=== PATIENT | female | born 1955 | race Caucasian/White ===

== ENCOUNTER 2025-08-22 10:52 | Emergency (ER) | payer MEDICARE, SELFPAY ==
[2025-08-22] VITALS (7 sets, daily range): BP systolic 117–130; BP diastolic 65–100; PULSE 64–80; RESP 12–22; TEMP 36.4–36.7; O2SAT 89–95; BMI 39.4
--- NOTE | ~2025-08-22 | CT_ITS ---
EXAMINATION: CT CHEST ANGIOGRAPHY WITH IV CONTRAST INDICATION: oxygen dependency new COMPARISON: There are no prior studies available for comparison. TECHNIQUE: Helical CT scan of the chest was performed following administration of intravenous contrast (65 mL Omnipaque 350). The contrast bolus was timed to optimally opacify the pulmonary arteries. Thin sections were obtained through the pulmonary arteries. Coronal and sagittal reformatted images were generated. 3D/MIP reconstructed images are also obtained and reviewed. This CT exam was performed with one or more of the following dose reduction techniques: automated exposure control, adjustment of the mA and/or kV according to patient size, use of iterative reconstruction technique. DLP: mGy-cm CHEST: THYROID: The thyroid gland is unremarkable. PULMONARY ARTERIES: No intraluminal filling defects are identified within the pulmonary arteries to suggest pulmonary emboli. Pulmonary arteries normal in caliber, main pulmonary artery measuring 2.6 cm. No evidence of right heart strain. No reflux of contrast into the liver. LUNGS: Elevated right hemidiaphragm. Mild 3 mm peripheral or subpleural right upper lobe nodule axial image 40 series 7. 4 mm peripheral or subpleural right upper lobe nodule adjacent to the minor fissure axial image 52 series 7. 5 mm peripheral right middle lobe nodule axial image 67 series 7. Peripheral scarring or subsegmental atelectasis in the inferior segment of the lingula. Very mild centrilobular emphysema. Mild dependent atelectasis. Central airways are clear. MEDIASTINUM: Small mediastinal lymph nodes. Small hiatal hernia. Small cardiophrenic angle anterior diaphragmatic lymph nodes. MICHAEL: No enlarged hilar lymph nodes. CARDIOVASCULATURE: The heart is normal in size. There is no pericardial effusion. The thoracic aorta is normal in caliber. DEGREE OF CORONARY CALCIFICATION: mild PLEURA: There is no pleural effusion. No pneumothorax. MAIN AIRWAYS: The mainstem bronchi and proximal branches are patent. AXILLA: There is no axillary lymphadenopathy. No chest wall mass. UPPER ABDOMEN: The visualized portions of the liver, spleen, and adrenals are unremarkable. BONES AND SOFT TISSUES: Unremarkable. CT/CT angio chest PE protocol IMPRESSION: No evidence of pulmonary emboli. Elevated right hemidiaphragm. Mild emphysema. Small pulmonary nodules largest measuring 5 mm. Small esophageal hernia. Fleischner Criteria for pulmonary nodule follow-up SOLID NODULES: Low risk patient: <6mm: no follow-up 6-8mm: 6 month follow-up CT >8mm: PET/Biopsy/ 3 month follow-up CT High risk patient: <6mm: 12 month follow-up CT 6-8mm: 6 month follow-up CT >8mm: PET/Biopsy/ 3 month follow-up CT SUB-SOLID/GROUNDGLASS NODULES: All patients: > or = 6mm: 6 month follow-up CT *Please note that in patients in the following categories, the Fleischner criteria do not apply: Immunocompromised, lung cancer screening population, age below 35, and patients with known malignancy Electronically signed by: Parul Nelson MD 08/22/2025 03:10 PM MIRELLA
--- NOTE | 2025-08-22 11:14 | ECG_ITS ---
Test Reason : sob Blood Pressure : */* mmHG Vent. Rate : 69 BPM Atrial Rate : 69 BPM P-R Int : 194 ms QRS Dur : 76 ms QT Int : 388 ms P-R-T Axes : 37 6 54 degrees QTcB Int : 415 ms Normal sinus rhythm Normal ECG No previous ECGs available Referred By: Generic ED Physician Electronically Signed By: Deshaun Dawkins
[2025-08-22 11:49] LABS: MANUAL DIFF FLAG NO
--- NOTE | 2025-08-22 11:51 | MHC.EDTECH ---
Addendum entered by Mariela Storey 08/22/25 12:02: EKG completed by this tech at this time. Original Note: EKG delayed due to the machine being used for other Pts.
[2025-08-22 11:55] LABS: INTERNATIONAL NORM RATIO 1.0 (0.9-1.1); Prothrombin Time 12.5 SEC (11.2-13.5)
[2025-08-22 11:56] LABS: Hematocrit 46.9 % (37.0-47.0); Hemoglobin 15.7 g/dl (12.0-16.0); Imm Gran Abs Auto 0.02 X10*3/uL (0.00-0.03); Imm Gran Pct Auto 0.3 % (0.0-0.4); Lymphocytes Absolute Auto 2.0 X10*3/uL (1.2-4.9); Mean Corpuscular HGB Conc 33.5 g/dl (31.0-35.0); Mean Corpuscular Hemoglobin 30.8 pg (27.0-33.0); Mean Corpuscular Volume 92.1 fL (80.0-98.0); NRBC Abs Auto 0.000 X10*3/uL (0.0-0.012); NRBC Pct Auto 0.0 /100WBC (0.0-0.2); Platelet Count 241 X10*3/uL (160-400); Red Blood Count 5.09 X10*6/uL (4.20-5.50); White Blood Count 7.4 X10*3/uL (4.8-10.8)
[2025-08-22 12:08] LABS: Alanine Aminotransferase 28 U/L (0-31); Albumin Level 4.2 g/dL (3.5-5.0); Alkaline Phosphatase 120 U/L (39-117); Anion Gap 11 (12-20); Aspartate Amino Transferase 26 U/L (5-31); Blood Urea Nitrogen 14 mg/dL (9-16); Calcium 9.3 mg/dL (8.4-10.2); Carbon Dioxide 24 mmol/L (22-29); Chloride 108 mmol/L (96-108); Creatinine Clr Calc Pharmacy 100.0; Estimated Glomerular Filt Rate > 60; Magnesium 2.3 mg/dL (1.6-2.6); Potassium 4.0 mmol/L (3.3-5.1); Sodium 139 mmol/L (135-145); Total Protein 6.9 g/dL (6.5-8.0)
[2025-08-22 12:18] LABS: Troponin-I High Sensitivity < 2.7 ng/L (<3.5-17.0)
--- NOTE | 2025-08-22 13:02 | ED.SOB ---
HPI - SOB/Dyspnea General Chief Complaint: Dyspnea Stated Complaint: dyspnea x 1 year Time Seen by Provider: 08/22/25 11:58 Source: patient and EMS Mode of arrival: EMS Limitations: no limitations History of Present Illness ED Provider: HPI Narrative: 69-year-old woman with history of [place] 2023 , stopped taking Plavix on April 2025, in the summer went and did a sleep study and noted that her oxygen drops to 81% when she is asleep and she was hypoxic to 87% while she was awake, this information was never communicated to her PCP, patient has been short of breath worse with exertion, after the sleep study she was told to make an appointment to see a PCP and she did in the PCP appointment was in August, so when she presented for a PCP visit they noted that she is hypoxic to 88%, and she was sent to the ER. Has not had any leg edema, weight gain, hemoptysis, fevers chills. Related Data Allergies Allergy/AdvReac Type Severity Reaction Status Date / Time Penicillins Allergy Hives Verified 08/22/25 11:12 ticagrelor (From Brilinta) Allergy Shortness Verified 08/22/25 11:12 of Breath Review of Systems Constitutional: Constitutional: Reports as per HPI [facility] Social History Social History Smoked in Last 30 Days: No Use of substances other than those prescribed or required for medical reasons: No Advance Directives: No Advance Directives Information Provided: Yes Do you have a plan to hurt others: No Plan Physical Exam Exam: Exam: General: ?Appears of stated age ? ?PERRLA, EOMI, MMM, ? Neck: Supple, no LAD ? ?CV: RRR, no obvious murmurs appreciated ? ?Resp: ?No wheezing rales rhonchi no stridor moving air well ? Abd: ?Bowel sounds are present, no tenderness no rebound no rigidity ? ?MSK: FROM, strength 5/5 all extremities ? Skin: Warm, dry, intact, ? ?Neuro: ?Alert and oriented x3, moving upper and lower extremities symmetrically, no obvious facial asymmetry noted, cranial nerves 2-12 intact Vital Signs: Vital Signs: Last Vital Signs Temp 97.6 F 08/22/25 13:23 Pulse 65 08/22/25 13:23 Resp 13 08/22/25 13:23 BP 120/69 08/22/25 13:23 Pulse Ox 93 08/22/25 13:23 O2 Del Method Room Air 08/22/25 13:23 O2 Flow Rate 2 08/22/25 12:05 BMI result Body Mass Index 39.4 Course Reevaluation(s) Reevaluation #1: 4:42 PM 08/22/2025 (Dr. Omar Osborn): I received sign-out on this patient the patient had had a whole workup including CTA she apparently was hypoxic on a sleep apnea test and on arrival 89% here. She has not been distress no cough phlegm hemoptysis. CTA negative. Reassuring lab work. The plan at the time of sign-out to me was that Respiratory would come evaluated for the possibility of at home PRN oxygen tank however after being off supplemental oxygen for 1 hour the patient did not have any hypoxia on an ambulation test. The patient was examined by myself she looks quite well she has clear lungs she is not in distress and she is saturating 97% There is signs of emphysema and a maximal 5 mm nodule in the lung that needs [address] which I have informed the patient. Recommended outpatient follow up, recommended getting a home oximeter to test her oxygen PRN and close follow up with PCP for referral for PFTs Medications Administered Discontinued Medications Generic Name Dose Route Start Last Admin Trade Name Freq PRN Reason Stop Dose Admin Iohexol 100 ml 08/22/25 14:30 08/22/25 14:30 Iohexol 350 Mg/Ml 100 Ml Infus..Btl IV 08/22/25 14:31 65 ml ONCE ONE Administration Medical Decision Making Medical Decision Making MDM Narrative: 1:09 PM 08/22/2025 (Dr. Ramakrishna Dueñas): Bedside ultrasound without pericardial effusion, RV strain, there was no evidence for pulmonary edema, interstitial lung disease, PE, cardiomyopathy all considerations though she does have a adequate cardiac squeeze, sounds like she has been hypoxic since initially diagnosed during the sleep study, prior to that she states she saw her PCP and her oxygen levels were well, she has been experiencing exertional dyspnea as discussed with the patient anticipating admission for new oxygen demand 3:58 PM 08/22/2025 (Dr. Ramakrishna Dueñas): Admitting provider we will evaluate the patient, and put a consult note for discharge out of the ER, and RT evaluation for an oxygen tank her care will be signed out to incoming provider Differential Diagnosis Differential Diagnoses: The differential diagnosis associated with the presentation includes (This did differential) Admission/Observation Consideration of admission/observation: Escalation of care including admission/observation considered Consult Healthcare Provider Management of the patient was discussed with: Hospitalist Lab Data MDM Lab Attestation statement: I reviewed the patient's lab results. 08/22/25 11:43 08/22/25 11:43 Labs: Lab Results 08/22/25 08/22/25 Range/Units 11:35 11:43 WBC 7.4 (4.8-10.8) X10*3/uL RBC 5.09 (4.20-5.50) X10*6/uL Hgb 15.7 (12.0-16.0) g/dl Hct 46.9 (37.0-47.0) % MCV 92.1 (80.0-98.0) fL MCH 30.8 (27.0-33.0) pg MCHC 33.5 (31.0-35.0) g/dl RDW 12.9 (11.0-16.0) % Plt Count 241 (160-400) X10*3/uL MPV 9.5 (9.4-12.3) fL Immature Gran % (Auto) 0.3 (0.0-0.4) % Neut % (Auto) 60.5 (45-73) % Lymph % (Auto) 27.2 (20-40) % [place] % (Auto) 10.2 (2-11) % Eos % (Auto) 1.5 (0-4) % Baso % (Auto) 0.3 (0-2) % Lymph # (Auto) 2.0 (1.2-4.9) X10*3/uL [place] # (Auto) 0.8 (0.1-1.2) X10*3/uL Eos # (Auto) 0.1 (0.0-0.4) X10*3/uL Baso # (Auto) 0.0 (0.0-0.2) X10*3/uL Abs Immat Gran (auto) 0.02 (0.00-0.03) X10*3/uL Absolute Neuts (auto) 4.5 (2.0-8.3) x10*3/uL Absolute Nucleated RBC 0.000 (0.0-0.012) X10*3/uL Nucleated RBC % (auto) 0.0 (0.0-0.2) /100WBC PT 12.5 (11.2-13.5) SEC INR 1.0 (0.9-1.1) Sodium 139 (135-145) mmol/L Potassium 4.0 (3.3-5.1) mmol/L Chloride 108 (96-108) mmol/L Carbon Dioxide 24 (22-29) mmol/L Anion Gap 11 L (12-20) BUN 14 (9-16) mg/dL Creatinine 0.61 (0.5-1.4) mg/dL Estim Creat Clear Calc 100.0 Estimated GFR > 60 Random Glucose 93 (60-115) mg/dL Calcium 9.3 (8.4-10.2) mg/dL Magnesium 2.3 (1.6-2.6) mg/dL Total Bilirubin 0.6 (0.0-1.0) mg/dL AST 26 (5-31) U/L ALT 28 (0-31) U/L Alkaline Phosphatase 120 H (39-117) U/L Troponin I High Sens < 2.7 (<3.5-17.0) ng/L NT-Pro-B Natriuret Pep < 15.8 (<300) pg/mL Total Protein 6.9 (6.5-8.0) g/dL Albumin 4.2 (3.5-5.0) g/dL COVID-19 (BUBBA) Negative (Negative) COVID-19 Clin Com See Note Influenza Type A (MARQUEZ) Negative (Negative) Influenza Type B (MARQUEZ) Negative (Negative) Influenza A & B Note See Note Independent Interpretation I performed an independent interpretation of an: EKG (69 beats per minute otherwise normal ECG without dysrhythmia, AV sung blocks or ST-T changes to suspect underlying ACS, my independent interpretation) Radiology Impression Discussion of test interpretation with radiology: I have reviewed the radiologist's reading. Procedures Ultrasound ED POC Ultrasound: EMERGENCY ULTRASOUND REPORT?Point of Care Cardiac (Echo-Focus), images I locally stored Emergent Cardiac for Indication: Dyspnea Views Used: Parasternal long, parasternal short, 4 chamber, subxiphoid, IVC Pericardial Effusion/Tamponade Findings: No pericardial effusion, no RV strain Global LV Fxn: Preserved IVC Dilation and Resp Variation: Less than 50% Impression: No pericardial effusion, no RV strain, slight hypovolemia Critical Care Time Critical Care Time Total Critical Care Time: 32 Attestation: Time is exclusive of separately billable procedures. Time includes: direct patient care, patient reassessment, coordination of patient care, interpretation of data (laboratory data, pulse oximetry, arterial blood gases and chest xrays), review of patient's medical records, medical consultation and documentation of patient care. Procedures excluded from critical care time: central intravenous line placement and electrocardiography. Discharge Plan Discharge Clinical Impression: Hypoxemia, Exertional dyspnea Patient Disposition: Home, Self-Care Instructions: Hypoxemia (DC), Pulmonary Nodules (ED) Additional Instructions: DISCHARGE DIAGNOSES: Transient or intermittent or fluctuating low oxygen Pulmonary embolism has been excluded, pneumonia excluded and other severe medical emergency he has excluded HISTORY OF PRESENTATION: ?Low oxygen on ambulation in the PCP office EMERGENCY DEPARTMENT COURSE,TESTS, TREATMENTS: While in the ED today you had a CT that found small nodule that needs to be followed up in [address] tell your primary doctor about this. Did not have a pulmonary emboli and you had reassuring lab work EKG. You did have a single episode of low oxygen but you were not distressed. Off supplemental oxygen we repeated your vital signs monitored you you did not have any persistent oxygen. You do not meet criteria based on Respiratory therapy evaluation for home oxygen DISCHARGE MEDICATIONS: ?[We have made no changes to your regular medication regimen] FOLLOW-UP: ?Call your primary or general physician soon as possible to discuss your symptoms, your ED visit and to discuss follow up plans Call PCP INSTRUCTIONS ?& RETURN PRECAUTIONS: If any symptoms change first call your primary physician, if it is after-hours your primary doctors office should have a provider executive relations specialist you can speak with. If the symptoms are severe or very concerning to you then call 911 or return to the ED. Omar Osborn MD Emergency Physician [facility] Print Language: Lebanese
[2025-08-22 13:54] LABS: NT Pro B Type Natriuretic Pept < 15.8 pg/mL (<300)
[2025-08-22 13:59] LABS: IDNOW Serial# 58CA691E
[2025-08-22 14:00] LABS: Influenza B2 Negative (Negative)
[2025-08-22 14:06] LABS: IDNOW Serial# 6674DD1D
[2025-08-22 14:07] LABS: COVID-19 Test Negative (Negative)
--- OUTSIDE RECORDS SUMMARY | 2025-08-22 14:13 | XMS_ITS | Clinical Summary ---
Author Organization [facility] Address [address] [place] [phone] Phone Care Team Providers Care Marine Diesel Mechanic Name Role Phone Carmen Dang MD Primary Care Provider + Allergies Active Allergy Reactions Criticality Noted Date Comments Clindamycin Phosphate 03/28/2023 Penicillins 03/28/2023 Medications escitalopram oxalate (LEXAPRO) 10 MG tablet Take 10 mg by mouth daily. Active losartan (COZAAR) 50 MG tablet Take 50 mg by mouth daily. Active cholecalciferol (VITAMIN D3) 2,000 unit capsule Take by mouth daily. Active Social History Tobacco Use Types Packs/Day Years Used Date Smoking Tobacco: Former Cigarettes Q uit: 2013 Smokeless Tobacco: Never Alcohol Use Standard Drinks/Week Comments Yes 0 (1 standard drink = 0.6 oz pur e alcohol) Education Answer Date Recorded Are you interested in more education? Not on jose angel e 02/12/2023 Are you concerned about learning? Not on file 02/12/2023 No 02/12/2023 No 02/12/2023 Digital Access Answer Date Recorded No 03/15/2023 No 03/15/2023 Reliable internet access at home? Not on file 03/15/2023 Device with a working camera? Not on file Comments Unknown Sex and Gender Information Value Date Recorded Sex Assigned at Not on file Legal Sex Female 11:29 AM EST Gender Identity Not on file Sexual Orientation Not on file Last Filed Vital Signs Vital Sign Reading Time Taken Comments Blood Pressure 115/65 03/29/2023 11:36 AM EDT Pulse 78 03/29/2023 11:36 AM EDT Temperature 36 C (96.8 F) 03/29/2023 11:24 AM EDT Respiratory Rate 19 03/29/2023 11:36 AM EDT Oxygen Saturation 93% 03/29/2023 11:36 AM EDT Inhaled Oxygen Concentration - - Weight 90.7 kg (200 lb) 03/28/2023 11:10 AM EDT Height 162.6 cm (5' 4 ) 03/28/2023 11:10 AM EDT Body Mass Index 34.33 03/28/2023 11:10 AM EDT Plan of Treatment Health Maintenance Due Date Last Done Comments Adult Td,Tdap Booster 1955 CREATININE LEVEL 1955 LIPID PANEL 1956 POTASSIUM LEVEL 1956 DEPRESSION SCREENING 1968 SMOKING Hx and SMOKELESS TOB ACCO SCREENING 1969 HEPATITIS C SCREENING 1974 SCREENING FOR DIABETES 1991 MAMMOGRAM 1996 COLOGUARD 2001 FIT TEST 2001 FOBT 2001 SIGMOIDOSCOPY 2001 VIRTUAL COLONOSCOPY 2001 PNEUMOCOCCAL VACCINES (50+ y ears) (1 of 1 - PCV) 2006 ZOSTER VACCINES (1 of 2) 2006 OSTEOPOROSIS SCREENING INITI AL (ONE-TIME) 2021 INFLUENZA VACCINE (#1) 2025 COVID-19 VACCINE (1 - 2024-2 6 season) 2025 RSV VACCINE (1 - 1-dose 75+ series) 2031 COLONOSCOPY 03/29/2033 03/29/2023 COLORECTAL CANCER SCREENING 03/29/2033 HEPATITIS A VACCINES Aged Out No long er eligible based on patient's age to complete this topic HIB VACCINES Aged Out No longer eligi ble based on patient's age to complete this topic MENINGOCOCCAL VACCINES (ACWY) Aged Out No longer eligible based on patient's age to complete this topic MENINGOCOCCAL VACCINES (B) Aged Out N o longer eligible based on patient's age to complete this topic Medical Devices Not on file Procedures Procedure Name Priority Date/Time Associated Diagnosis Comments ENDOSCOPY, COLON 03/29/2023 10:5 9 AM EDT from Last 3 Months or Most Recently Relevant to Health Maintenance Results * ENDOSCOPY, COLON (03/29/2023 10:59 AM EDT) Narrative Transcriptions Alejo Bejarano MD - 03/29/2023 10:59 AM EDT [facility] Patient Name: Allison Stern Attending MD:: ALEJO BEJARANO MD, , Procedure Date: 03/29/2023 10:59 AM Date of : 1955 Age: 67 Admit Type: Outpatient Gender: Female Room: [place] [address] Referring MD: Carmen Dang MD Exam Type: Colonoscopy Indications: Screening for colorectal malignant neoplasm Medications: Monitored Anesthesia Care Procedure: Informed consent was obtained from the patientafter discussion of the indications, limitations, alternatives, benefits, and risks of the procedure. Risks specifically discussed include but are not limited to medication reactions, missed lesions, bleeding, perforation, or the need for emergent surgery. Throughout the procedure, the patient's blood pressure, pulse, end-tidal CO2, and oxygensaturations were monitored continuously. The Olympus adult variable colonoscope [id number] #1 was introduced through the anus and advanced to the cecum, identified by appendiceal orifice andileocecal valve. The colonoscopy was performed without difficulty. The patient tolerated the procedurewell. The quality of the bowel preparation was excellent. Anatomical landmarks were photographed. The qualityof the bowel preparation was evaluated using the BBPS ([place] Bowel Preparation Scale) with scores of:Right Colon = 3, Transverse Colon = 3 and Left Colon = 3 (entire mucosa seen well with no residual staining, small fragments of stool or opaque liquid). Thetotal BBPS score equals 9. Complications: No immediate complications. Estimated blood loss: Minimal. Findings: The perianal and digital rectal examinations were normal. A 4 mm polyp was found in the transverse colon. The polyp was sessile. The polyp was removed with acold snare. Resection and retrieval were complete. A 4 mm polyp was found in the sigmoid colon. Thepolyp was sessile. The polyp was removed with a coldsnare. Resection and retrieval were complete. Scattered small and large-mouthed diverticula were found in the sigmoid colon, descending colon and ascending colon. Internal hemorrhoids were found duringretroflexion. The hemorrhoids were mild. The exam was otherwise normal throughout theexamined colon. Impression: - One 4 mm polyp in the transverse colon, removedwith a cold snare. Resected and retrieved. - One 4 mm polyp in the sigmoid colon, removed witha cold snare. Resected and retrieved. - Mild diverticulosis in the sigmoid colon, in the descending colon and in the ascending colon. - Internal hemorrhoids. Recommendation: - Discharge patient to home. - Await pathology results. ALEJO BEJARANO MD, 03/29/2023 11:24:14 AM This report has been signed electronically. Number of Addenda: 0 Note Initiated On: 03/29/2023 10:59 AM Procedure Code(s): --- Professional --- 46704, Colonoscopy, flexible; with removal of tumor(s), polyp(s), or other lesion(s) by snare technique --- Technical --- 50374, Colonoscopy, flexible; with removal of tumor(s), polyp(s), or other lesion(s) by snare technique Diagnosis Code(s): --- Professional --- Z12.11, Encounter for screening for malignantneoplasm of colon D12.3, Benign neoplasm of transverse colon (hepatic flexure or splenic flexure) D12.5, Benign neoplasm of sigmoid colon K64.8, Other hemorrhoids K57.30, Diverticulosis of large intestine without perforation or abscess without bleeding --- Technical --- Z12.11, Encounter for screening for malignantneoplasm of colon D12.3, Benign neoplasm of transverse colon (hepatic flexure or splenic flexure) D12.5, Benign neoplasm of sigmoid colon K64.8, Other hemorrhoids K57.30, Diverticulosis of large intestine without perforation or abscess without bleeding CPT copyright 2021 [employer]. All rights reserved. The codes documented in this report are preliminary and upon dye line operator reviewmay be revised to meet current compliance requirements. Procedure Date: 03/29/2023 10:59:[address] [place] [id number] Carmen Dang MD GI PROCEDURE ORDERABLES Final Result from Last 3 Months or Most Recently Relevant to Health Maintenance Insurance AETNA O MEDICARE REPLACEMENT AETNA O MEDICARE REPLACEMENT AETNA PPO MEDICARE REPLACEMENT AETNA O MEDICARE REPLACEMENT AETNA O MEDICARE REPLACEMENT AETNA PPO MEDICARE REPLACEMENT Care Teams Marine Diesel Mechanic Relationship Specialty Start Date End Date Carmen Dang MD [email or web address] PCP - General Family Medicine 03/16/23 Additional Source Comments The information contained in this document represents components of the legal health record. It is not the complete legal health record.[facility]
--- OUTSIDE RECORDS SUMMARY | 2025-08-22 14:13 | XMS_ITS | Encounter Summary ---
Author Organization [facility] Address [address] [facility] [address] [place] [phone] Phone Care Team Providers Care Tile Decorator Name Role Phone Carmen Dang MD Primary Care Provider + Encounter Details Date Type Department Care Team (Late st Contact Info) Description 03/29/2023 Procedure Pass [facility] Endoscopy Admitting Dept Virtual Department [address] [place] [address] Social History Tobacco Use Types Packs/Day Years [...] on file Sexual Orientation Not on file documented as of this encounter Plan of Treatment Not on file documented as of this encounter Visit Diagnoses Not on filedocumented in this encounter Care Teams Tile Decorator Relationship Specialty Start Date End Date Carmen Dang MD [email or web address] PCP - General Family Medicine 03/16/23 documented as of this encounter Additional Source Comments The information contained in this document represents components of the legal health record. It is not the complete legal health record.[facility]
[2025-08-22] MEDS: iohexoL 350 MG/ML 100 ML INFUS..BTL IV (14:30)
--- NOTE | 2025-08-22 16:01 | PM.EVENT ---
Event Note Date of Service: 08/22/25 Event Note: Patient is sent in for hypoxia. She reports no symptoms, CTA negative, BNP unremarkable. She reports heavy smoking history likely this is chronic hypoxia from COPD recommend home O2 eval and outpatient pulmonary follow up for PFTs Time Spent With Patient Time: Total time managing care of this patient today ____ minutes.
== END 2025-08-22 17:12 | disposition home or self-care (01) ==
PROVIDERS: Emergency Provider Emergency Medicine; PCP Family Medicine
DX: R09.02 Hypoxemia (principal); R06.09 Other forms of dyspnea; R06.02 Shortness of breath; R91.1 Solitary pulmonary nodule
CPT/HCPCS: 36415; 71275; 80053; 83735; 83880; 84484; 85025; 85610; 87502; 87635; 93005; 93308; 99284; Q9967

== ENCOUNTER → 2025-08-22 11:14 | Outpatient (BNV) | payer MEDICARE, SELFPAY | PROVIDERS: Emergency Provider Emergency Medicine; PCP Family Medicine; Visit Provider Internal Medicine Cardiovascular Disease | DX: R06.02 Shortness of breath (principal) | CPT/HCPCS: 93010 ==

== ENCOUNTER → 2025-08-22 13:02 | Outpatient (BNV) | payer MEDICARE, SELFPAY | PROVIDERS: Emergency Provider Emergency Medicine; PCP Family Medicine; Visit Provider Radiology Diagnostic Radiology | DX: R09.02 Hypoxemia (principal) | CPT/HCPCS: 71275 ==